=== PATIENT | male | born 1950 | race Caucasian/White ===

== ENCOUNTER 2017-03-10 01:46 | Emergency (ER) | payer MEDICARE, MEDICAID ==
[~2017-03-10] VITALS: Ht 167.6 cm; Wt 91.0 kg
[~2017-03-10 01:46] MED LIST: AMLO5TAB2 PO; ASPI-770 PO; ATEN100T PO; ATEN25TA; ATEN50TA41 PO; ATOR20TA9 PO; ATOR40TA78 PO; CYAN10005 PO; ERGO500017 PO; FOLI-17 PO; HYDR-3240; HYDR-3307 PO; HYDR-3343 PO; IBUP200T5 PO; LISI-167; LISI-170 PO; LISI5TAB7 PO; LOSA50TA2 PO; MAGN400T7 PO; MULT-6 PO; MULT-750 PO; OMEP-110 PO; THIA100T6 PO
[2017-03-10 01:53] VITALS: BP 148/70
== END 2017-03-10 02:05 | disposition home or self-care (01) ==
LOC: ED 02:01
DX: F10.129 Alcohol abuse with intoxication, unspecified (principal)
CPT/HCPCS: 99283

== ENCOUNTER 2017-03-12 23:31 | Emergency (ER) | payer MEDICARE, MEDICAID ==
[~2017-03-12] VITALS: Ht 167.6 cm; Wt 88.8 kg
[2017-03-12 23:33] VITALS: BP 166/94
[2017-03-13] MEDS ORDERED: KETOROLAC 30 MG/1 ML ONE (00:45)
[2017-03-13] MEDS ORDERED: IBUPROFEN 200 MG TABLET ONE (00:49)
[2017-03-13] MEDS ORDERED: KETOROLAC 30 MG/1 ML IM ONE (01:00)
[2017-03-13] MEDS ORDERED: IBUPROFEN 200 MG TABLET PO ONE (01:30)
== END 2017-03-13 01:12 | disposition home or self-care (01) ==
LOC: ED 23:59
DX: M94.0 Chondrocostal junction syndrome [Tietze] (principal); I11.9 Hypertensive heart disease without heart failure; E78.5 Hyperlipidemia, unspecified; I25.2 Old myocardial infarction; Z86.73 Personal history of transient ischemic attack (TIA), and cerebral infarction without residual deficits; Z95.0 Presence of cardiac pacemaker; F10.20 Alcohol dependence, uncomplicated
CPT/HCPCS: 71020; 93005; 99284

== ENCOUNTER 2017-10-25 14:50 | Emergency (ER) | payer MEDICARE, MEDICAID ==
[~2017-10-25] VITALS: Ht 172.7 cm; Wt 81.8 kg
[~2017-10-25 14:50] MED LIST changes: +IBUP-1484 PO; -IBUP200T5 PO
[2017-10-25 14:56] VITALS: BP 117/78
== END 2017-10-25 18:03 | disposition home or self-care (01) ==
LOC: ED 17:00
DX: S00.81XA Abrasion of other part of head, initial encounter (principal); F10.120 Alcohol abuse with intoxication, uncomplicated; I25.2 Old myocardial infarction; E78.5 Hyperlipidemia, unspecified; F31.9 Bipolar disorder, unspecified; I10 Essential (primary) hypertension; Z86.73 Personal history of transient ischemic attack (TIA), and cerebral infarction without residual deficits; Z95.0 Presence of cardiac pacemaker; W19.XXXA Unspecified fall, initial encounter; Y93.89 Activity, other specified; Y92.488 Other paved roadways as the place of occurrence of the external cause; Y99.8 Other external cause status
CPT/HCPCS: 70450; 72125; 99284